=== PATIENT | male | born 1965 | race Caucasian/White ===

== ENCOUNTER 2023-05-21 06:42 | Day surgery (SDC) | payer OTHER ==
[~2023-05-21] VITALS: Ht 185.4 cm; Wt 72.7 kg
[2023-05-21] MEDS ORDERED: ALBUTEROL SULFATE 2.5 MG/0.5 ML NEB SOLUTION NEB ONE (06:43)
[2023-05-21] MEDS ORDERED: BENZOCAINE 20% 50 MCG/SPRAY 57 GM TP ONE (06:43)
[2023-05-21] MEDS ORDERED: LIDOCAINE 4% 50 ML SOLUTION TP ONE (06:43)
[2023-05-21] MEDS ORDERED: LIDOCAINE 2% 11 ML JELLY TP ONE (06:43)
[2023-05-21] MEDS ORDERED: SODIUM CHLORIDE 0.9% 1,000 ML ONE (07:01)
[2023-05-21] MEDS ORDERED: RIME75TA PO (07:51)
[2023-05-21] MEDS ORDERED: ALBU18HF12 IH (07:52)
[2023-05-21] MEDS ORDERED: PROP40TA7 PO (07:53)
[2023-05-21] MEDS ORDERED: TOPI100T37 PO (07:54)
[2023-05-21] MEDS ORDERED: LEVO50 PO (07:54)
[2023-05-21] MEDS ORDERED: ATOR20TA PO (07:55)
[2023-05-21] MEDS ORDERED: FOLI-130 PO (07:56)
[2023-05-21] MEDS ORDERED: DEXL60CA3 PO (07:56)
[2023-05-21] MEDS ORDERED: MONT-35 PO (07:59)
[2023-05-21] MEDS ORDERED: UMEC1DIS (07:59)
[2023-05-21] MEDS ORDERED: FLUT16SP NASAL (08:00)
[2023-05-21] MEDS ORDERED: BACL10TA PO (08:01)
[2023-05-21] MEDS ORDERED: CARB1TAB36 PO (08:05)
[2023-05-21] MEDS ORDERED: GABA-1181 PO (08:06)
[2023-05-21] MEDS ORDERED: BECL10.62 IH (08:07)
[2023-05-21] MEDS ORDERED: METH-812 PO (08:08)
[2023-05-21] MEDS ORDERED: GALC120S SQ (08:12)
[2023-05-21] MEDS ORDERED: ROPI0.2535 PO (08:13)
[2023-05-21] MEDS ORDERED: FentaNYL CITRATE PF 100 MCG/2 ML VIAL ONE (08:21)
[2023-05-21] MEDS ORDERED: MIDAZOLAM HCL 2 MG/2 ML VIAL ONE (08:21)
[2023-05-21] MEDS ORDERED: MethylPREDNISolone SOD SUCC 125 MG/2 ML VIAL IVP ONE (10:00)
[2023-05-21 10:15] VITALS: PULSE 65; RESP 23; O2SAT 100
[2023-05-21] MEDS ORDERED: MethylPREDNISolone SOD SUCC 125 MG/2 ML VIAL ONE (10:29)
[2023-05-21 12:38] VITALS: PULSE 65; RESP 23; O2SAT 100
[2023-05-28] MEDS ORDERED: SODIUM CHLORIDE 0.9% 1,000 ML IV ONE (08:45)
== END 2023-05-21 11:48 | disposition home or self-care (01) ==
LOC: SURGERY 06:42
PROVIDERS: ATTEND Internal Medicine Critical Care Medicine
DX: J38.4 Edema of larynx (principal); B37.0 Candidal stomatitis; J43.9 Emphysema, unspecified; F17.210 Nicotine dependence, cigarettes, uncomplicated; Z79.899 Other long term (current) drug therapy; Z90.49 Acquired absence of other specified parts of digestive tract; Z98.890 Other specified postprocedural states; Z88.8 Allergy status to other drugs, medicaments and biological substances; Z91.040 Latex allergy status
CPT/HCPCS: 31623; 88112; 87206; 87101; 87220; 87070; 87186; 31624; 94640; 71045; 87015; J3010; J2250; J2930; Q9967; J7030; J7613; Z7610

== ENCOUNTER 2024-05-28 06:08 | Day surgery (SDC) | payer OTHER ==
[~2024-05-28 06:08] MED LIST: ALBU18HF12 IH; ATOR20TA PO; CARB1TAB36 PO; DEXL60CA3 PO; FLUT16SP NASAL; FOLI-130 PO; GABA-1181 PO; LEVO50 PO; METH-812 PO; MONT-35 PO; PROP40TA7 PO; RIME75TA PO; TOPI100T37 PO
[2024-05-28] MEDS ORDERED: LIDOCAINE 2% 11 ML JELLY TP ONE (06:09)
[2024-05-28] MEDS ORDERED: LIDOCAINE 4% 50 ML SOLUTION TP ONE (06:09)
[2024-05-28] MEDS ORDERED: ALBUTEROL SULFATE 2.5 MG/0.5 ML NEB SOLUTION NEB ONE (06:09)
[2024-05-28] MEDS ORDERED: BENZOCAINE 20% 50 MCG/SPRAY 57 GM TP ONE (06:09)
[2024-05-28] MEDS ORDERED: SODIUM CHLORIDE 0.9% 1,000 ML ONE (07:05)
[2024-05-28] MEDS: SODIUM CHLORIDE 0.9% 1,000 ML IV ONE (07:39)
[2024-05-28] MEDS ORDERED: FentaNYL CITRATE PF 100 MCG/2 ML VIAL ONE (07:58)
[2024-05-28] MEDS ORDERED: MIDAZOLAM HCL 2 MG/2 ML VIAL ONE (07:58)
[2024-05-28 09:08] VITALS: PULSE 65; RESP 17; O2SAT 97; O2SAT 99
[2024-05-28] MEDS ORDERED: MethylPREDNISolone SOD SUCC 125 MG/2 ML VIAL ONE (09:52)
[2024-05-28] MEDS: MethylPREDNISolone SOD SUCC 125 MG/2 ML VIAL IVP ONE (09:56)
== END 2024-05-28 12:30 | disposition home or self-care (01) ==
LOC: SURGERY 06:08
PROVIDERS: ATTEND Internal Medicine Critical Care Medicine
DX: R05.3 Chronic cough (principal); R06.2 Wheezing; R49.0 Dysphonia; R06.1 Stridor; R91.8 Other nonspecific abnormal finding of lung field; B37.0 Candidal stomatitis; E03.9 Hypothyroidism, unspecified; N18.2 Chronic kidney disease, stage 2 (mild)
CPT/HCPCS: 31623; 87206; 87101; 87220; 87070; 88108; 31624; 94640; 71045; 87015; J3010; J2250; J2919; J7030; J7613; Z7610